=== PATIENT | male | born 2000 | race Caucasian/White ===

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

== ENCOUNTER 2019-02-28 06:17 | Outpatient (CLI) | payer OTHER ==
[~2019-02-28] VITALS: Ht 177 cm; Wt 68.0 kg
[2019-02-28] MEDS ORDERED: MULT-974 PO (11:58)
== END 2019-02-28 12:08 ==
LOC: PREOP 06:17
PROVIDERS: ATTEND Surgery
DX: Z01.818 Encounter for other preprocedural examination (principal); R59.0 Localized enlarged lymph nodes

== ENCOUNTER → 2020-02-12 | Outpatient (CLI) | payer OTHER ==
[~2020-02-12] MED LIST changes: +HYDR-34 PO; +MULT-974 PO
== END ==
LOC: LABNPT 07:15
PROVIDERS: ATTEND Family Medicine
DX: R50.9 Fever, unspecified (principal); R11.0 Nausea; R19.7 Diarrhea, unspecified; Z20.828 Contact with and (suspected) exposure to other viral communicable diseases
CPT/HCPCS: 87635